=== PATIENT | female | born 1995 | race Two or more races ===

== ENCOUNTER 2018-04-17 21:10 | Emergency (ER) | payer OTHER ==
[2018-04-17] MEDS: IPRATRPIUM/ALBUTEROL 0.5/2.5MG 3 ML NEBU. NEB (22:19)
[2018-04-17] MEDS: predniSONE 20 MG TABLET PO (22:46)
== END 2018-04-17 22:50 | disposition home or self-care (01) ==
LOC: ER 21:10
DX: J45.909 Unspecified asthma, uncomplicated (principal); J20.9 Acute bronchitis, unspecified; Z88.0 Allergy status to penicillin
CPT/HCPCS: 94640; 99283; J7512; J7620

== ENCOUNTER → 2019-02-23 | Outpatient (CLI) | payer OTHER ==
[2018-04-17 22:00] VITALS: BP 156/78
[~2019-02-23] MED LIST: AZIT250T6 PO; PRED20TA PO
--- NOTE | 2019-02-23 15:02 | KCIC ---
Examination: CT ABDOMEN PELVIS WO CONTRAST History: Hematuria Comparison/Correlation: None Findings: Axial images of the abdomen and pelvis were obtained without contrast. Sagittal and coronal reformatted images provided. Visualized lung bases are clear Liver, spleen, pancreas, and adrenal glands are normal. Gallbladder fossa is unremarkable. There are no radiopaque collecting system calculi or evidence of obstruction. Urinary bladder is unremarkable. No enlarged abdominal or pelvic lymph nodes. Mesenteric lymph nodes are present but not enlarged. No bowel obstruction. L5 limbus vertebra noted. Adnexal follicles are physiologic in appearance. Impression: No radiopaque collecting system calculi. No suggestion of mass lesion on this noncontrast exam. PQRS Compliance Statement: One or more of the following individualized dose reduction techniques were utilized for this examination: 1. Automated exposure control 2. Adjustment of the mA and/or kV according to patient size 3. Use of iterative reconstruction technique Electronically signed by: Hema Sibley MD (02/23/2019 2:59 PM) [facility]
== END | disposition home or self-care (01) ==
LOC: KCIC CT 11:28
PROVIDERS: ATTEND Nurse Practitioner Family
DX: R31.9 Hematuria, unspecified (principal)
CPT/HCPCS: 74176

== ENCOUNTER → 2019-08-12 | Outpatient (CLI) | payer OTHER ==
[2018-04-17 22:00] VITALS: BP 156/78
--- NOTE | 2019-08-12 14:44 | KCIC ---
Chest radiograph 08/12/2019 12:00 AM INDICATION: Right-sided chest pain for one week COMPARISON: 11/13/2005 TECHNIQUE: Frontal and lateral views of the chest are provided. FINDINGS: The cardiomediastinal silhouette is within normal limits. There are no pleural effusions. There is no pulmonary vascular congestion. There is no pneumothorax. The lungs are clear. No significant osseous abnormality is identified. IMPRESSION: No acute cardiopulmonary process. Electronically signed by: Tessa Dean MD (08/12/2019 2:41 PM) [facility]
== END | disposition home or self-care (01) ==
LOC: KCIC 14:00
PROVIDERS: ATTEND Nurse Practitioner Family
DX: R07.89 Other chest pain (principal)
CPT/HCPCS: 71046